=== PATIENT | male | born 1975 | race Caucasian/White ===

== ENCOUNTER 2021-09-23 17:58 | Emergency (ER) | payer OTHER ==
[~2021-09-23] VITALS: Ht 170.2 cm; Wt 81.7 kg
[2021-09-23] MEDS ORDERED: ONDANSETRON ODT8 MG PO (20:06)
[2021-09-23] MEDS ORDERED: LOMOTIL TABLET1 EACH PO (20:06)
--- OUTSIDE RECORDS SUMMARY | 2021-09-23 20:52 | XMS ---
PreManage Notification: CARMEN GARNER Security Insurance Attorney Events No recent Security Events currently on file CRITERIA MET - [facility] - 2 Visits in 30 Days CARE PROVIDERS LEONIE CERVANTES Nurse Practitioner: Family Current PHONE: [phone] Aba has no Care Guidelines for this patient. EJulian VISIT COUNT (12 MO.) [address] TOTAL 2 NOTE: Visits indicate total known visits. ED/UCC VISIT TRACKING (12 MO.) 09/23/2021 17:58 [facility] [place]: Emergency COMPLAINT: - DIARRHEA 09/11/2021 11:04 [facility] OR TYPE: Emergency DIAGNOSES: 42447. CHEST PRESSURE 89814. Other chest pain 42767. Anesthesia of skin INPATIENT VISIT TRACKING (12 MO.) No inpatient visits to display in this time frame [email or web address]
== END 2021-09-23 20:14 | disposition home or self-care (01) ==
LOC: ED 17:58
DX: K52.9 Noninfective gastroenteritis and colitis, unspecified (principal)
CPT/HCPCS: 99283